=== PATIENT | male | born 1990 | race African-American/Black ===

== ENCOUNTER 2016-12-30 12:47 | Emergency (ER) | payer SELFPAY ==
[~2016-12-30] VITALS: Ht 165.1 cm; Wt 96.0 kg
[2016-12-30 14:17] VITALS: BP 116/74
== END 2016-12-30 15:40 | disposition home or self-care (01) ==
LOC: ER 12:52
DX: J40 Bronchitis, not specified as acute or chronic (principal); F17.200 Nicotine dependence, unspecified, uncomplicated
CPT/HCPCS: 71010; 99283; 99406

== ENCOUNTER 2018-03-25 12:33 | Emergency (ER) | payer SELFPAY ==
[~2018-03-25] VITALS: Ht 165.1 cm; Wt 105.0 kg
[2018-03-25 14:40] LABS: EOSINOPHILS % 2.3 % (0.0-5.0); HEMATOCRIT. 42.4 % (42.0-52.0); HEMOGLOBIN. 13.9 g/dL (14.0-18.0); LYMPHOCYTES % 36.2 % (20.0-50.0); MEAN CORPUSCULAR HEMOGLOBIN 27.6 pg (28.0-32.0); MEAN PLATELET VOLUME 9.7 fl (7.4-10.4); MONOCYTES % 12.5 % (2.0-8.0); PLATELET 207 x1000/uL (130-400); RED BLOOD CELL COUNT 5.04 mill/uL (4.7-6.1); RED CELL DISTRIBUTION WIDTH 14.7 % (11.6-14.6)
[2018-03-25 14:44] LABS: CHLORIDE 108 mEq/L (98-107); INR 1.1; PROTHROMBIN TIME 11.5 sec (9.4-11.6)
[2018-03-25 17:54] VITALS: BP 145/97
== END 2018-03-25 17:57 | disposition home or self-care (01) ==
LOC: ER 14:39
DX: R07.9 Chest pain, unspecified (principal); E66.9 Obesity, unspecified; D64.9 Anemia, unspecified; R73.9 Hyperglycemia, unspecified; Z87.891 Personal history of nicotine dependence; Z68.38 Body mass index [BMI] 38.0-38.9, adult
CPT/HCPCS: 36415; 71045; 80053; 83880; 84484; 85025; 85610; 93005; 99285; 99406

== ENCOUNTER 2020-02-11 21:16 | Emergency (ER) | payer MEDICAID, OTHER ==
[~2020-02-11] VITALS: Ht 165.1 cm; Wt 113.0 kg
[~2020-02-11 21:16] MED LIST: LACT10SO6 PO; LORA10TA7 PO; METF-414 PO; MONT10TA26 PO; OMEP20CA14 PO
[2020-02-11] MEDS ORDERED: KETOROLAC 30MG/ML VIAL IM ONE (22:30)
[2020-02-12] MEDS ORDERED: TRAMADOL 50MG TABLET PO ONE (02:00)
[2020-02-12 02:44] VITALS: BP 112/68
== END 2020-02-12 02:46 | disposition home or self-care (01) ==
LOC: ER 21:16
DX: R10.11 Right upper quadrant pain (principal); K76.0 Fatty (change of) liver, not elsewhere classified; E11.9 Type 2 diabetes mellitus without complications; I10 Essential (primary) hypertension; F14.10 Cocaine abuse, uncomplicated
CPT/HCPCS: 74176; 96372; 99284; J1885

== ENCOUNTER 2020-02-13 16:44 | Emergency (ER) | payer MEDICAID, OTHER ==
[~2020-02-13] VITALS: Ht 165.1 cm; Wt 113.0 kg
[2020-02-13 19:10] LABS: HEMATOCRIT. 45.4 % (42.0-52.0); HEMOGLOBIN. 15.1 g/dL (14.0-18.0); MEAN CORPUSCULAR HEMOGLOBIN 28.3 pg (28.0-32.0); PLATELET 258 x1000/uL (130-400); RED BLOOD CELL COUNT 5.34 mill/uL (4.7-6.1); RED CELL DISTRIBUTION WIDTH 14.2 % (11.6-14.6)
[2020-02-13 19:16] LABS: CHLORIDE 99 mEq/L (98-107); INR 1.1
[2020-02-13 19:36] LABS: PLATELET ESTIMATE NORMAL
[2020-02-13] MEDS ORDERED: AZITHROMYCIN 500 MG in DEXT 5% WATER 250 ML IV ONE (20:00)
[2020-02-13] MEDS ORDERED: CEFTRIAXONE 1 G PREMIX 50 ML IV ONE (20:00)
[2020-02-13 20:53] LABS: CLARITY URINE CLEAR (CLEAR); COLOR URINE DARK YELLOW (YELLOW); KETONES URINE 2+ (NEGATIVE); LEUKOCYTE ESTERASE URINE NEGATIVE (NEGATIVE); NITRITE URINE NEGATIVE (NEGATIVE); OCCULT BLOOD URINE NEGATIVE (NEGATIVE); PH URINE 5.5 (4.5-8.0); PROTEIN URINE 2+ (NEGATIVE); SPECIFIC GRAVITY URINE 1.029 (1.005-1.030)
[2020-02-13 21:18] LABS: *AMPHETAMINES SCREEN URINE NEGATIVE (NEGATIVE); *BARBITURATES SCREEN URINE NEGATIVE (NEGATIVE); *BENZODIAZEPINES SCREEN URINE NEGATIVE (NEGATIVE); *COCAINE SCREEN URINE PRESUMTIVE POSITIVE (NEGATIVE); METHADONE URINE SCREEN NEGATIVE (NEGATIVE)
[2020-02-13 21:20] LABS: CANNABINOID URINE SCREEN NEGATIVE (NEGATIVE); OPIATES URINE SCREEN NEGATIVE (NEGATIVE); PHENCYCLIDINE URINE SCREEN NEGATIVE (NEGATIVE)
[2020-02-13 23:45] VITALS: BP 138/78
== END 2020-02-13 23:30 | disposition home or self-care (01) ==
LOC: ER 16:44
DX: J18.9 Pneumonia, unspecified organism (principal); R07.89 Other chest pain; E11.9 Type 2 diabetes mellitus without complications; Z79.84 Long term (current) use of oral hypoglycemic drugs
CPT/HCPCS: 36415; 71045; 80053; 80305; 81003; 82962; 83880; 84484; 85025; 85610; 93005; 96365; 96368; 99285; J0456; J0696; J7060

== ENCOUNTER 2020-02-28 12:34 | Inpatient (IN) | payer OTHER ==
[~2020-02-28] VITALS: Ht 167.6 cm; Wt 84.8 kg
[2020-02-28] MEDS ORDERED: ACETAMINOPHEN 325MG TABLET PO STA (13:09)
[2020-02-28] MEDS ORDERED: AZITHROMYCIN 500 MG in DEXT 5% WATER 250 ML IV ONE (13:15)
[2020-02-28] MEDS ORDERED: CEFTRIAXONE 1 G PREMIX 50 ML IV ONE (13:15)
[2020-02-28 14:22] LABS: BASOPHILS % 0.5 % (0.0-2.0); EOSINOPHILS % 0.4 % (0.0-5.0); HEMATOCRIT. 38.7 % (42.0-52.0); HEMOGLOBIN. 12.8 g/dL (14.0-18.0); LYMPHOCYTES % 9.9 % (20.0-50.0); MEAN CORPUSCULAR HEMOGLOBIN 27.1 pg (28.0-32.0); MEAN CORPUSCULAR VOLUME 82.1 fL (80.0-94.0); MEAN PLATELET VOLUME 8.9 fl (7.4-10.4); MONOCYTES % 11.9 % (2.0-8.0); NEUTROPHILS % 77.3 % (40.0-76.0); PLATELET 519 x1000/uL (130-400); RED BLOOD CELL COUNT 4.72 mill/uL (4.7-6.1)
[2020-02-28 14:28] LABS: CHLORIDE 102 mEq/L (98-107)
[2020-02-28 14:31] LABS: INR 1.1
[2020-02-28] MEDS ORDERED: GUAIFENESIN/CODEINE 200-20MG/10ML UDC PO ONE (15:45)
[2020-02-28] MEDS ORDERED: GUAIFENESIN/CODEINE 100-10MG/5ML UDC PO NR (15:47)
[2020-02-28] MEDS: ENOXAPARIN 80MG/0.8ML SYR SUBCUT SCH (16:00)
[2020-02-28] MEDS ORDERED: ONDANSETRON HCL 4MG/2ML INJ IV PRN (16:00)
[2020-02-28 17:14] LABS: PHOSPHORUS 3.6 mg/dL (2.5-4.9)
[2020-02-28] MEDS ORDERED: KETOROLAC 15MG/ML VIAL IV ONE (17:15)
[2020-02-28] MEDS: ACETAMINOPHEN 325MG TABLET PO PRN (23:06)
[2020-02-29] VITALS (8 sets, daily range): BP systolic 115–166; BP diastolic 72–107
[2020-02-29] MEDS ORDERED: CYCL25PO21 MT (01:28)
[2020-02-29] MEDS ORDERED: MONT10TA21 MT (01:28)
[2020-02-29] MEDS ORDERED: BECL10.6 INH (01:28)
[2020-02-29] MEDS ORDERED: DICY10SO PO (01:28)
[2020-02-29] MEDS ORDERED: TOPUD PO (01:28)
[2020-02-29] MEDS ORDERED: CYCL5TAB PO (01:28)
[2020-02-29] MEDS ORDERED: LOSA50TA41 PO (01:28)
[2020-02-29] MEDS: MORPHINE SULFATE 2 MG/ML CPJ (NOT FOR IM USE) IV PRN ×4 (04:03→20:45)
[2020-02-29] MEDS: ENOXAPARIN 80MG/0.8ML SYR SUBCUT SCH ×2 (04:09→16:42)
[2020-02-29] MEDS: ACETAMINOPHEN 325MG TABLET PO PRN (04:30)
[2020-02-29] MEDS: GUAIFENESIN 200MG/10ML SUGAR FREE UDC PO PRN (08:40)
[2020-02-29] MEDS ORDERED: CEFTRIAXONE 1 G PREMIX 50 ML IV SCH ×2 (09:00→12:00)
[2020-02-29] MEDS ORDERED: DEXTROSE 50% WATER 50ML SYRINGE IV PRN (09:30)
[2020-02-29] MEDS: AZITHROMYCIN 500 MG in DEXT 5% WATER 250 ML IV SCH (09:38)
[2020-02-29 11:38] LABS: BASOPHILS % 0.7 % (0.0-2.0); EOSINOPHILS % 0.4 % (0.0-5.0); HEMATOCRIT. 35.6 % (42.0-52.0); HEMOGLOBIN. 11.8 g/dL (14.0-18.0); LYMPHOCYTES % 8.1 % (20.0-50.0); MEAN CORPUSCULAR HEMOGLOBIN 27.1 pg (28.0-32.0); MEAN CORPUSCULAR VOLUME 81.8 fL (80.0-94.0); MEAN PLATELET VOLUME 8.9 fl (7.4-10.4); MONOCYTES % 10.8 % (2.0-8.0); PLATELET 471 x1000/uL (130-400); RED BLOOD CELL COUNT 4.35 mill/uL (4.7-6.1); RED CELL DISTRIBUTION WIDTH 15.1 % (11.6-14.6)
[2020-02-29] MEDS: BLOOD SUGAR DIAGNOSTIC STRIP TEST SCH ×3 (11:46→20:45)
[2020-02-29 12:20] LABS: CHLORIDE 99 mEq/L (98-107)
[2020-02-29] MEDS: INSULIN LISPRO 100 UNITS/ML SUBCUT SCH ×3 (12:27→20:45)
[2020-02-29 12:32] LABS: LDL CHOLESTEROL 35 mg/dL (5-100)
[2020-02-29 12:36] LABS: HDL CHOLESTEROL 20 mg/dL (40-59)
[2020-02-29] MEDS ORDERED: AZITHROMYCIN 500 MG in DEXT 5% WATER 250 ML IV SCH (13:00)
[2020-02-29] MEDS ORDERED: IPRATROPIUM/ALBUTEROL 0.5-3(2.5)MG/3ML NEB HHN PRN (13:15)
[2020-02-29] MEDS: LORATADINE 10MG TABLET PO SCH (13:42)
[2020-02-29] MEDS: OMEPRAZOLE 20MG CAPSULE EXTENDED RELEASE PO SCH (13:43)
[2020-02-29] MEDS: LOSARTAN POTASSIUM 50 MG TABLET PO SCH (13:43)
[2020-02-29] MEDS: HYDROCODONE/ACETAMINOPHEN 5/325MG TABLET PO PRN (16:36)
[2020-02-29] MEDS ORDERED: SODIUM CHLORIDE 10% FOR INH 15ML VIAL NEB INH SCH (18:00)
[2020-02-29] MEDS: METFORMIN HCL 500MG TABLET PO SCH (18:26)
[2020-02-29] MEDS: MONTELUKAST SODIUM 10MG TABLET PO SCH (20:45)
[2020-02-29] MEDS: IPRATROPIUM/ALBUTEROL 0.5-3(2.5)MG/3ML NEB HHN SCH (22:25)
[2020-03-01] VITALS (8 sets, daily range): BP systolic 112–138; BP diastolic 61–84
[2020-03-01] MEDS: IPRATROPIUM/ALBUTEROL 0.5-3(2.5)MG/3ML NEB HHN SCH ×6 (00:20→20:05)
[2020-03-01] MEDS: ACETYLCYSTEINE 100MG/ML 10% VIAL 4ML INH SCH ×4 (00:20→20:05)
[2020-03-01] MEDS: ACETAMINOPHEN 325MG TABLET PO PRN (00:32)
[2020-03-01] MEDS: CEFEPIME 2,000 MG in DEXT 5% WATER 100 ML IV SCH ×3 (00:35→21:32)
[2020-03-01] MEDS: METRONIDAZOLE 500 MG PREMIX 100 ML IV SCH ×3 (01:30→21:01)
[2020-03-01] MEDS: VANCOMYCIN 1500MG in DEXTROSE 5% WATER 250ML IV SCH ×3 (01:31→17:32)
[2020-03-01] MEDS: ENOXAPARIN 80MG/0.8ML SYR SUBCUT SCH ×2 (04:00→16:15)
[2020-03-01] MEDS: OMEPRAZOLE 20MG CAPSULE EXTENDED RELEASE PO SCH (06:30)
[2020-03-01] MEDS: BLOOD SUGAR DIAGNOSTIC STRIP TEST SCH ×4 (06:30→20:58)
[2020-03-01] MEDS: INSULIN LISPRO 100 UNITS/ML SUBCUT SCH ×4 (07:39→20:59)
[2020-03-01] MEDS ORDERED: SODIUM BICARBONATE 4% (2.4MEQ) 5ML VIAL IV ONE (08:11)
[2020-03-01] MEDS: LOSARTAN POTASSIUM 50 MG TABLET PO SCH (09:53)
[2020-03-01] MEDS: LORATADINE 10MG TABLET PO SCH (09:53)
[2020-03-01] MEDS: METFORMIN HCL 500MG TABLET PO SCH ×2 (09:53→19:55)
[2020-03-01] MEDS: AZITHROMYCIN 500 MG in DEXT 5% WATER 250 ML IV SCH (10:30)
[2020-03-01] MEDS: GUAIFENESIN 200MG/10ML SUGAR FREE UDC PO PRN (13:04)
[2020-03-01] MEDS: HYDROCODONE/ACETAMINOPHEN 5/325MG TABLET PO PRN ×2 (13:06→21:39)
[2020-03-01] MEDS ORDERED: SODIUM CHLORIDE 0.9% 500ML IV SOLN IV NR (15:30)
[2020-03-01] MEDS: SODIUM CHLORIDE 0.9% 1,000 ML IV SCH (16:21)
[2020-03-01] MEDS: MONTELUKAST SODIUM 10MG TABLET PO SCH (21:31)
[2020-03-02] VITALS (32 sets, daily range): BP systolic 85–175; BP diastolic 57–111
[2020-03-02] MEDS: ACETYLCYSTEINE 100MG/ML 10% VIAL 4ML INH SCH ×3 (00:45→16:02)
[2020-03-02] MEDS: VANCOMYCIN 1500MG in DEXTROSE 5% WATER 250ML IV SCH ×5 (01:34→22:47)
[2020-03-02] MEDS: SODIUM CHLORIDE 0.9% 1,000 ML IV SCH ×3 (01:35→21:28)
[2020-03-02] MEDS: IPRATROPIUM/ALBUTEROL 0.5-3(2.5)MG/3ML NEB HHN SCH ×6 (01:59→20:28)
[2020-03-02] MEDS: METRONIDAZOLE 500 MG PREMIX 100 ML IV SCH ×3 (03:56→20:04)
[2020-03-02] MEDS: BLOOD SUGAR DIAGNOSTIC STRIP TEST SCH ×4 (06:11→20:05)
[2020-03-02] MEDS: FAMOTIDINE 20MG TABLET PO SCH ×2 (06:15→17:12)
[2020-03-02] MEDS: GUAIFENESIN 200MG/10ML SUGAR FREE UDC PO PRN (06:20)
[2020-03-02] MEDS: METFORMIN HCL 500MG TABLET PO SCH ×2 (06:21→17:12)
[2020-03-02] MEDS: INSULIN LISPRO 100 UNITS/ML SUBCUT SCH ×4 (07:20→20:05)
[2020-03-02 08:11] LABS: BASOPHILS % 0.7 % (0.0-2.0); EOSINOPHILS % 1.4 % (0.0-5.0); HEMATOCRIT. 33.6 % (42.0-52.0); HEMOGLOBIN. 11.4 g/dL (14.0-18.0); LYMPHOCYTES % 11.6 % (20.0-50.0); MEAN CORPUSCULAR HEMOGLOBIN 27.7 pg (28.0-32.0); MEAN CORPUSCULAR VOLUME 81.9 fL (80.0-94.0); MEAN PLATELET VOLUME 8.5 fl (7.4-10.4); MONOCYTES % 10.6 % (2.0-8.0); NEUTROPHILS % 75.7 % (40.0-76.0); PLATELET 431 x1000/uL (130-400); RED BLOOD CELL COUNT 4.11 mill/uL (4.7-6.1)
[2020-03-02 08:23] LABS: CHLORIDE 99 mEq/L (98-107)
[2020-03-02] MEDS: LORATADINE 10MG TABLET PO SCH (09:00)
[2020-03-02] MEDS: CEFEPIME 2,000 MG in DEXT 5% WATER 100 ML IV SCH ×2 (09:01→21:26)
[2020-03-02] MEDS: AZITHROMYCIN 500 MG in DEXT 5% WATER 250 ML IV SCH (09:09)
[2020-03-02] MEDS ORDERED: BUPIVACAINE/EPINEPH/PF 0.25%/0.0005 10ML ONE (09:34)
[2020-03-02] MEDS ORDERED: LIDOCAINE HCL/EPINEPHRINE 1%-EPI 1:100,000 20 ML VIAL ONE (09:35)
[2020-03-02] MEDS ORDERED: NORMAL SALINE 0.9% 10 ML SYR ONE (09:35)
[2020-03-02] MEDS ORDERED: BACITRACIN 50,000 UNITS/VIAL ONE (09:35)
[2020-03-02] MEDS ORDERED: SKIN ADHESIVE 0.7 GM EA TOP ONE (09:35)
[2020-03-02] MEDS ORDERED: TETRACAINE/BENZOCAINE/BUTAMBEN 20 GM SPRAY MM ONE (09:36)
[2020-03-02] MEDS ORDERED: SODIUM BICARBONATE 4% (2.4MEQ) 5ML VIAL IV ONE (09:42)
[2020-03-02] MEDS ORDERED: LIDOCAINE HCL 1% 20ML VIAL (Pyxis) INJ ONE (09:43)
[2020-03-02] MEDS ORDERED: THROMBIN (BOVINE) 5000 UNITS/VIAL TOP ONE (10:04)
[2020-03-02] MEDS ORDERED: ROCURONIUM BROMIDE 10MG/ML VIAL 5ML IV ONE (10:50)
[2020-03-02] MEDS ORDERED: SUCCINYLCHOLINE CHLORIDE 200MG/10ML IV ONE (10:50)
[2020-03-02] MEDS ORDERED: FENTANYL CITRATE/PF 50MCG/ML 2ML VIAL ONE (10:50)
[2020-03-02] MEDS ORDERED: MIDAZOLAM HCL 2 MG/2 ML VIAL ONE (10:50)
[2020-03-02] MEDS ORDERED: PROPOFOL 200MG/20ML VIAL IV ONE (10:51)
[2020-03-02] MEDS ORDERED: ESMOLOL HCL 10MG/ML 10ML VIAL IV ONE (10:55)
[2020-03-02] MEDS ORDERED: DEXAMETHASONE 4MG/ML 1ML VIAL ONE (11:05)
[2020-03-02] MEDS ORDERED: LIDOCAINE HCL 2% JELLY 5ML ONE (11:07)
[2020-03-02] MEDS ORDERED: ONDANSETRON HCL 4MG/2ML INJ ONE (11:58)
[2020-03-02] MEDS ORDERED: KETOROLAC 30MG/ML VIAL ONE (12:05)
[2020-03-02] MEDS ORDERED: NEOSTIGMINE METHYLSULFATE 1MG/ML 10 ML VIAL ONE (12:12)
[2020-03-02] MEDS ORDERED: GLYCOPYRROLATE 0.2 MG/ML 2ML VIAL ONE (12:12)
[2020-03-02] MEDS ORDERED: HYDRALAZINE 20MG/ML VIAL ONE (12:17)
[2020-03-02] MEDS ORDERED: SODIUM CHLORIDE 0.9% 10ML VIAL ONE (12:18)
[2020-03-02] MEDS ORDERED: INSULIN LISPRO 100 UNITS/ML SUBCUT SCH (12:20)
[2020-03-02] MEDS: MORPHINE SULFATE 2 MG/ML CPJ (NOT FOR IM USE) IV PRN (13:07)
[2020-03-02] MEDS: KETOROLAC 15MG/ML VIAL IV SCH ×2 (13:52→18:15)
[2020-03-02] MEDS: FUROSEMIDE 40MG/4ML VIAL IVP SCH (14:05)
[2020-03-02] MEDS: MONTELUKAST SODIUM 10MG TABLET PO SCH (20:04)
[2020-03-03] VITALS (10 sets, daily range): BP systolic 106–142; BP diastolic 69–79
[2020-03-03] MEDS: KETOROLAC 15MG/ML VIAL IV SCH (00:06)
[2020-03-03] MEDS: GUAIFENESIN 200MG/10ML SUGAR FREE UDC PO PRN ×2 (00:10→08:52)
[2020-03-03] MEDS: IPRATROPIUM/ALBUTEROL 0.5-3(2.5)MG/3ML NEB HHN SCH ×4 (01:00→12:10)
[2020-03-03] MEDS: METRONIDAZOLE 500 MG PREMIX 100 ML IV SCH ×2 (02:26→10:48)
[2020-03-03 05:09] LABS: HIV SCREEN 4G Non Reactive (Non Reactive)
[2020-03-03 05:22] LABS: BASOPHILS % 0.2 % (0.0-2.0); HEMATOCRIT. 33.6 % (42.0-52.0); HEMOGLOBIN. 11.2 g/dL (14.0-18.0); LYMPHOCYTES % 8.4 % (20.0-50.0); MEAN CORPUSCULAR HEMOGLOBIN 27.3 pg (28.0-32.0); MEAN CORPUSCULAR VOLUME 81.6 fL (80.0-94.0); MEAN PLATELET VOLUME 8.3 fl (7.4-10.4); NEUTROPHILS % 83.4 % (40.0-76.0); PLATELET 477 x1000/uL (130-400); RED BLOOD CELL COUNT 4.12 mill/uL (4.7-6.1)
[2020-03-03 05:30] LABS: CHLORIDE 99 mEq/L (98-107)
[2020-03-03] MEDS: BLOOD SUGAR DIAGNOSTIC STRIP TEST SCH ×2 (05:43→12:30)
[2020-03-03] MEDS: FAMOTIDINE 20MG TABLET PO SCH (05:43)
[2020-03-03] MEDS: VANCOMYCIN 1500MG in DEXTROSE 5% WATER 250ML IV SCH (05:43)
[2020-03-03] MEDS: ACETYLCYSTEINE 100MG/ML 10% VIAL 4ML INH SCH ×2 (05:51→08:50)
[2020-03-03] MEDS: INSULIN LISPRO 100 UNITS/ML SUBCUT SCH ×3 (06:18→12:30)
[2020-03-03] MEDS: METFORMIN HCL 500MG TABLET PO SCH ×2 (08:20→08:30)
[2020-03-03] MEDS: SODIUM CHLORIDE 0.9% 1,000 ML IV SCH (08:30)
[2020-03-03] MEDS ORDERED: BUMETANIDE 1MG/4ML VIAL IV SCH (08:30)
[2020-03-03] MEDS: LORATADINE 10MG TABLET PO SCH (08:30)
[2020-03-03] MEDS ORDERED: BUMETANIDE 2.5MG/10ML VIAL IV NR (08:30)
[2020-03-03] MEDS: CEFEPIME 2,000 MG in DEXT 5% WATER 100 ML IV SCH (08:31)
[2020-03-03] MEDS: FUROSEMIDE 40MG/4ML VIAL IVP SCH (08:31)
[2020-03-03] MEDS: HYDROCODONE/ACETAMINOPHEN 5/325MG TABLET PO PRN (08:52)
[2020-03-03] MEDS: AZITHROMYCIN 500 MG in DEXT 5% WATER 250 ML IV SCH (09:28)
[2020-03-03] MEDS ORDERED: [UNRECOGNIZED DRUG - CODE] MT (15:47)
[2020-03-03] MEDS ORDERED: AMOX1TAB16 MT (15:47)
== END 2020-03-03 16:43 | disposition home or self-care (01) | DRG 710 ==
LOC: ER 12:34 → EDBEDREQ 14:33 → EDBEDREQTM 14:33 → ENRESERV 21:08 → 7WST 22:11 → 6WST 02-29 04:59 → 3WST 03-01 18:07 → MICUNO 03-02 12:23 → CVICU 03-03 08:03
PROVIDERS: ADMIT Internal Medicine; ATTEND Internal Medicine
PROC: 0W993ZZ Drainage of Right Pleural Cavity, Percutaneous Approach (ICD-10-PCS; principal; 2020-03-01)
PROC: 02HV33Z Insertion of Infusion Device into Superior Vena Cava, Percutaneous Approach (ICD-10-PCS; 2020-03-02)
PROC: B548ZZA Ultrasonography of Superior Vena Cava, Guidance (ICD-10-PCS; 2020-03-02)
PROC: 0BNK3ZZ Release Right Lung, Percutaneous Approach (ICD-10-PCS; 2020-03-02)
PROC: 0W9930Z Drainage of Right Pleural Cavity with Drainage Device, Percutaneous Approach (ICD-10-PCS; 2020-03-02)
DX: A41.9 Sepsis, unspecified organism (principal); J96.00 Acute respiratory failure, unspecified whether with hypoxia or hypercapnia; R65.21 Severe sepsis with septic shock; J86.9 Pyothorax without fistula; J91.8 Pleural effusion in other conditions classified elsewhere; J18.9 Pneumonia, unspecified organism; J94.8 Other specified pleural conditions; E11.9 Type 2 diabetes mellitus without complications; D72.810 Lymphocytopenia; I10 Essential (primary) hypertension; R79.89 Other specified abnormal findings of blood chemistry; E44.1 Mild protein-calorie malnutrition; J45.909 Unspecified asthma, uncomplicated; F17.210 Nicotine dependence, cigarettes, uncomplicated; E87.1 Hypo-osmolality and hyponatremia; Z79.899 Other long term (current) drug therapy; Z68.30 Body mass index [BMI] 30.0-30.9, adult; Z03.818 Encounter for observation for suspected exposure to other biological agents ruled out
CPT/HCPCS: 32555; 36415; 36573; 71045; 71250; 76937; 80048; 80053; 80061; 80202; 82040; 82728; 82962; 83036; 83605; 83615; 83735; 83880; 84100; 84484; 85025; 85379; 86140; 87075; 87116; 87210; 87389; 87899; 88108; 88312; 93005; 93306; 96365; 99291; C1725; J0171; J0330; J0360; J0456; J0692; J0696; J1100; J1650; J1885; J1940; J2250; J2270; J2405; J2704; J2710; J3010; J3370; J3490; J7030; J7060; J7131; J7608; U0003-CS

== ENCOUNTER 2020-03-07 12:23 | Emergency (ER) | payer OTHER ==
[~2020-03-07] VITALS: Ht 167.6 cm; Wt 115.0 kg
[~2020-03-07 12:23] MED LIST changes: +AMOX1TAB16 MT; +BECL10.6 INH; +CYCL25PO21 MT; +CYCL5TAB PO; +DICY10SO PO; +LOSA50TA41 PO; +MONT10TA21 MT; +TOPUD PO; +[UNRECOGNIZED DRUG - CODE] MT
[2020-03-07 12:27] VITALS: BP 138/84
== END 2020-03-07 13:25 | disposition home or self-care (01) ==
LOC: ER 12:23
DX: Z48.01 Encounter for change or removal of surgical wound dressing (principal); E11.9 Type 2 diabetes mellitus without complications; Z98.890 Other specified postprocedural states; Z79.84 Long term (current) use of oral hypoglycemic drugs
CPT/HCPCS: 99281

== ENCOUNTER 2021-08-12 01:53 | Emergency (ER) | payer MEDICAID, OTHER ==
[~2021-08-12] VITALS: Ht 170.2 cm; Wt 122.0 kg
[~2021-08-12 01:53] MED LIST changes: +CYCL25PO15 MT; -CYCL25PO21 MT; -MONT10TA26 PO; +MONT10TA32 PO
[2021-08-12 02:55] VITALS: BP 124/86
[2021-08-12] MEDS ORDERED: CEFAZOLIN 1000MG PREMIX 50 ML IV SCH (05:30)
[2021-08-12] MEDS ORDERED: KETOROLAC 30MG/ML VIAL IV SCH (05:30)
== END 2021-08-12 06:37 | disposition left against medical advice (07) ==
LOC: ER 01:53
DX: S01.81XA Laceration without foreign body of other part of head, initial encounter (principal); S00.83XA Contusion of other part of head, initial encounter; S41.012A Laceration without foreign body of left shoulder, initial encounter; S00.81XA Abrasion of other part of head, initial encounter; E11.9 Type 2 diabetes mellitus without complications; F10.10 Alcohol abuse, uncomplicated; Y90.9 Presence of alcohol in blood, level not specified; Z79.84 Long term (current) use of oral hypoglycemic drugs; Y08.89XA Assault by other specified means, initial encounter; W25.XXXA Contact with sharp glass, initial encounter; Y92.018 Other place in single-family (private) house as the place of occurrence of the external cause
CPT/HCPCS: 71045; 73030; 99284; J0690; J1885

== ENCOUNTER 2022-01-19 14:41 | Emergency (ER) | payer MEDICAID, OTHER ==
[~2022-01-19] VITALS: Ht 167.6 cm; Wt 71.0 kg
[2022-01-19] MEDS ORDERED: TETANUS, DIPHTHERIA, PERTUSSIS VAC/PF 0.5ML (>10YR OLD) IM ONE (16:00)
[2022-01-19] MEDS ORDERED: LIDOCAINE HCL/EPINEPHRINE 1%-EPI 1:100,000 20 ML VIAL INFIL ONE (17:15)
[2022-01-19 17:34] LABS: BASOPHILS % 0.9 % (0.0-2.0); EOSINOPHILS % 1.3 % (0.0-5.0); HEMATOCRIT. 41.7 % (42.0-52.0); HEMOGLOBIN. 13.9 g/dL (14.0-18.0); LYMPHOCYTES % 19.7 % (20.0-50.0); MEAN CORPUSCULAR HEMOGLOBIN 28.7 pg (28.0-32.0); MEAN PLATELET VOLUME 9.9 fl (7.4-10.4); MONOCYTES % 10.8 % (2.0-8.0); NEUTROPHILS % 67.3 % (40.0-76.0); PLATELET 211 x1000/uL (130-400); RED BLOOD CELL COUNT 4.85 mill/uL (4.7-6.1); RED CELL DISTRIBUTION WIDTH 15.2 % (11.6-14.6)
[2022-01-19 17:38] LABS: CHLORIDE 107 mEq/L (98-107)
[2022-01-19] MEDS ORDERED: KETOROLAC 30MG/ML VIAL IM ONE (19:00)
[2022-01-19] MEDS ORDERED: LIDOCAINE HCL/EPINEPHRINE 1%-EPI 1:100,000 20 ML VIAL INFIL NR (19:09)
[2022-01-19 20:32] VITALS: BP 145/78
[2022-01-19] MEDS ORDERED: IOHEXOL-350 100 ML BOTTLE ONE (23:15)
== END 2022-01-19 20:38 | disposition home or self-care (01) ==
LOC: ER 15:46
DX: S41.111A Laceration without foreign body of right upper arm, initial encounter (principal); E11.9 Type 2 diabetes mellitus without complications; F12.10 Cannabis abuse, uncomplicated; Z79.84 Long term (current) use of oral hypoglycemic drugs; X99.1XXA Assault by knife, initial encounter; Y93.89 Activity, other specified; Y92.89 Other specified places as the place of occurrence of the external cause
CPT/HCPCS: 12002; 36415; 71045; 73060; 73206; 80053; 85025; 90471; 90715; 93005; 96372; 99285; J1885; J3490; Q9967

== ENCOUNTER 2022-10-14 19:50 | Emergency (ER) | payer OTHER ==
[~2022-10-14] VITALS: Ht 165.1 cm; Wt 89.9 kg
[~2022-10-14 19:50] MED LIST changes: +MONT-39 PO; -MONT10TA32 PO
[2022-10-14 19:55] VITALS: BP 144/95
[2022-10-15] MEDS ORDERED: CLIN-194 MT (01:11)
== END 2022-10-15 02:17 | disposition left against medical advice (07) ==
LOC: ER 19:50
DX: M86.141 Other acute osteomyelitis, right hand (principal); E11.9 Type 2 diabetes mellitus without complications; F12.10 Cannabis abuse, uncomplicated; Z87.828 Personal history of other (healed) physical injury and trauma; Z79.84 Long term (current) use of oral hypoglycemic drugs
CPT/HCPCS: 73140; 99283

== ENCOUNTER 2022-12-18 20:16 | Emergency (ER) | payer OTHER ==
[~2022-12-18] VITALS: Ht 177.8 cm; Wt 69.0 kg
[~2022-12-18 20:16] MED LIST changes: +CLIN-194 MT; +MONT-46 MT; -MONT10TA21 MT
[2022-12-18] MEDS ORDERED: PREDNISONE 20MG TABLET PO ONE (20:30)
[2022-12-18] MEDS ORDERED: IPRATROPIUM BROMIDE (0.02%) 0.5MG/2.5ML NEB HHN ONE (20:30)
[2022-12-18 21:55] LABS: CHLORIDE 112 mEq/L (98-107)
[2022-12-18 21:59] LABS: BASOPHILS % 1.3 % (0.0-2.0); EOSINOPHILS % 4.7 % (0.0-5.0); HEMATOCRIT. 28.1 % (42.0-52.0); HEMOGLOBIN. 9.2 g/dL (14.0-18.0); LYMPHOCYTES % 32.3 % (20.0-50.0); MEAN CORPUSCULAR HEMOGLOBIN 26.4 pg (28.0-32.0); MEAN CORPUSCULAR VOLUME 80.8 fL (80.0-94.0); MEAN PLATELET VOLUME 8.9 fl (7.4-10.4); MONOCYTES % 11.8 % (2.0-8.0); NEUTROPHILS % 49.9 % (40.0-76.0); PLATELET 333 x1000/uL (130-400); RED BLOOD CELL COUNT 3.47 mill/uL (4.7-6.1); RED CELL DISTRIBUTION WIDTH 18.5 % (11.6-14.6)
[2022-12-18] MEDS ORDERED: ALBUTEROL (0.5%) 2.5MG/0.5ML NEB HHN NR (22:15)
[2022-12-18] MEDS ORDERED: ALBU6.7H3 INH (23:27)
[2022-12-18] MEDS ORDERED: ACET-2708 MT (23:27)
[2022-12-18] MEDS ORDERED: MED4 MT (23:27)
[2022-12-18 23:45] VITALS: BP 121/74
== END 2022-12-18 23:45 | disposition home or self-care (01) ==
LOC: ER 20:16
DX: B34.9 Viral infection, unspecified (principal); Z00.00 Encounter for general adult medical examination without abnormal findings; J45.909 Unspecified asthma, uncomplicated; F12.10 Cannabis abuse, uncomplicated; Z79.899 Other long term (current) drug therapy; Z20.822 Contact with and (suspected) exposure to COVID-19
CPT/HCPCS: 36415; 71045; 80053; 85025; 87426; 93005; 94640; 99285; C9803; Z7610

== ENCOUNTER 2024-02-26 16:41 | Emergency (ER) | payer MEDICAID, OTHER ==
[~2024-02-26] VITALS: Ht 177.8 cm; Wt 70.0 kg
[~2024-02-26 16:41] MED LIST changes: +ACET-2708 MT; +ALBU6.7H3 INH; +MED4 MT
[2024-02-26 16:46] VITALS: BP 152/101; PULSE 103; RESP 16; TEMP 97.3; O2SAT 100
[2024-02-26 18:41] LABS: BASOPHILS % 1.1 % (0.0-2.0); EOSINOPHILS % 1.8 % (0.0-5.0); HEMATOCRIT. 41.4 % (42.0-52.0); LYMPHOCYTES % 25.3 % (20.0-50.0); MEAN CORPUSCULAR HEMOGLOBIN 27.3 pg (28.0-32.0); MEAN CORPUSCULAR HGB CONC 33.9 g/dL (31.0-37.0); MEAN CORPUSCULAR VOLUME 80.7 fL (80.0-94.0); MONOCYTES % 6.9 % (2.0-8.0); NEUTROPHILS % 64.9 % (40.0-76.0); PLATELET 158 x1000/uL (130-400); RED BLOOD CELL COUNT 5.13 mill/uL (4.7-6.1); RED CELL DISTRIBUTION WIDTH 15.7 % (11.6-14.6); WHITE BLOOD COUNT 3.9 x1000/uL (4.5-11.0)
[2024-02-26 18:48] LABS: CARBON DIOXIDE 25 mEq/L (21-32); CHLORIDE 109 mEq/L (98-107); POTASSIUM 3.8 mEq/L (3.5-5.1); SODIUM 139 mEq/L (136-145)
[2024-02-26 18:49] LABS: CALCIUM 9.4 mg/dL (8.7-10.4)
[2024-02-26 18:54] LABS: CREATININE 0.9 mg/dL (0.6-1.3); GLUCOSE 86 mg/dL (70-105); UREA NITROGEN BLOOD 12 mg/dL (9-23)
[2024-02-26 18:55] LABS: ACETAMINOPHEN < 2 ug/mL (10-30); ALANINE AMINOTRANSFERASE 18 IU/L (10-49); ASPARTATE AMINOTRANSFERASE 16 IU/L (<34)
[2024-02-26 18:56] LABS: ALBUMIN 4.5 g/dL (3.2-4.8); BILIRUBIN DIRECT 0.3 mg/dL (<=3.0); BILIRUBIN TOTAL 0.7 mg/dL (0.1-1.0); CREATINE KINASE 181 IU/L (46-171); PROTEIN TOTAL 6.9 g/dL (6.0-8.3)
[2024-02-26 19:08] LABS: ETHANOL BLOOD < 10 mg/dL (<10); TROPONIN I HIGH SENSITIVITY < 4 ng/L (3.0-53)
== END 2024-02-26 21:20 | disposition left against medical advice (07) ==
LOC: ER 16:41
DX: R51.9 Headache, unspecified (principal); J45.909 Unspecified asthma, uncomplicated; E11.9 Type 2 diabetes mellitus without complications; F12.10 Cannabis abuse, uncomplicated; F15.10 Other stimulant abuse, uncomplicated; Z79.899 Other long term (current) drug therapy
CPT/HCPCS: 36415; 80048; 80076; 80307; 80320; 80329; 82550; 84443; 84484; 85025; 99283; G0480